=== PATIENT | male | born 1975 | race African-American/Black ===

== ENCOUNTER 2016-10-06 10:37 | Emergency (ER) | payer OTHER ==
--- NOTE | ~2016-10-06 | CT4 ---
[facility] A Service of [facility] RADIOLOGY TEXT RESULTS PATIENT: TERRI ERVIN LOCATION: [facility] : 79 UNIT #: [id number] AGE: [address]: Freda Qiu APRN SEX: M ORDER DR: [id number] [facility] [address] [place], [place] [address] [id number] E MR#: [id number] Acc #: [id number] NAME: TERRI ERVIN : 1975 SEX: M STUDY DATE/TIME: 10/06/2016 11:37 UNIT: [facility] ROOM: STUDY DESCRIPTION: CT Abd and Pelv Wo Cont Attending Physician: Freda Qiu A.P.R.N. Ordering Physician: Ed Jh Kim M.D. Primary Care Physician: Primary Care Physician No MEDICAL IMAGING REPORT This report is preliminary unless electronic signature is present EXAM CT abdomen and pelvis 10/06 INDICATIONS Left flank pain that started at 07:30 this morning. History of kidney stones. TECHNIQUE Axial images were obtained through the abdomen and pelvis without contrast. Multiplanar reformats were obtained. This CT exam was performed with one or more of the following radiation dose reduction techniques: automatic exposure control, adjustment of mA and/or kV according to patient size, and iterative reconstruction. COMPARISON 07/31/2009 FINDINGS Abdomen: Lung bases are clear. Gallbladder unremarkable. There is mild left hydronephrosis secondary to a 3 mm stone at the left ureterovesical junction. Tiny nonobstructing stones present in both kidneys. Unenhanced solid organs are otherwise normal. No adenopathy or free fluid is seen. The unopacified GI tract is normal. There are multiple ventral wall hernias containing abdominal fat. Pelvis: The appendix is normal. The remainder of the unopacified GI tract is normal as well. The urinary bladder is normal. No free fluid. Postoperative changes noted in the proximal femur on the right. Patient has a right L5 pars defect. IMPRESSION 1. Mild left hydronephrosis secondary to a 3 mL stone at the left ureterovesical junction. [facility] A Service of [facility] RADIOLOGY TEXT RESULTS PATIENT: TERRI ERVIN LOCATION: [facility] #: [id number] : [birth year] UNIT #: [id number] AGE: [address]: Freda Qiu APRN SEX: M ORDER DR: 2. Bilateral small nonobstructing renal stones. 3. Normal unopacified GI tract, including the appendix. 4. Multiple ventral wall hernias containing abdominal fat are again seen. Dictated by... Quan Segovia Jr., M.D. THIS IS AN ELECTRONICALLY VERIFIED REPORT Quan Segovia Jr., M.D. at 10/08/2016 7:20 AM RLK/jennifer TD: 10/06/2016 21:29 JOB #: [id number] MEDICAL IMAGING REPORT Page 1 of 1 COPY
[~2016-10-06 10:37] MED LIST: CIPRO PO; FLOMAX0.4 M1 PO; LORCET 10/650 T1 TAB PO; NORCO 7.5-3251 EACH PO; PHENERGAN PO; PYRIDIUM PO; TYLOX1 CAP 5/50 PO; ZITHROMAX1 G/PKT PO
[2016-10-06 11:24] LABS: BASOPHIL# 0.1 X10e3 (0-0.3); BASOPHIL% 0.6 % (0-2.5); EOSINOPHIL# 0.6 X10e3 (0-0.7); HEMATOCRIT 46.8 % (38.0-50.0); HEMOGLOBIN 15.4 gm/dL (13.0-16.0); LYMPHOCYTE# 2.5 X10e3 (1.0-3.5); LYMPHOCYTE% 25.1 % (17.0-45.0); MEAN CELL VOLUME 87.1 FL (83-96); MEAN CORPUSCULAR HEMOGLOBIN 28.7 PG (28-34); MEAN PLATELET VOLUME 9.1 FL (6.5-11.5); MONOCYTE# 0.8 X10e3 (0-1.0); MONOCYTE% 8.2 % (3.0-12.0); NEUTROPHIL# 5.9 X10e3 (1.5-7.1); NEUTROPHIL% 60.1 % (40-75); PLATELET COUNT 226 X10e3 (140-420); RED BLOOD COUNT 5.37 X10e (3.90-5.60); RED CELL DISTRIBUTION WIDTH 13.3 % (11.0-15.5); WHITE BLOOD COUNT 9.8 X10e3 (4.0-10.5)
[2016-10-06 11:24] LABS: URINE SOURCE CLEAN CATCH
[2016-10-06 11:27] LABS: DIFF IND NO
[2016-10-06 11:28] LABS: URINE APPEARANCE CLEAR; URINE BILIRUBIN NEG (NEG); URINE BLOOD NEG (NEG); URINE COLOR YELLOW; URINE GLUCOSE NEG (NEG); URINE KETONE NEG (NEG); URINE LEUKOCYTE ESTERASE NEG (NEG); URINE NITRATE NEG (NEG); URINE PROTEIN NEG (NEG); URINE SPECIFIC GRAVITY 1.029 (1.003-1.035); URINE UROBILINOGEN 0.2 MG/DL (NEG)
[2016-10-06 11:33] LABS: CULTURE INDICATED? NO
[2016-10-06 11:49] LABS: ALBUMIN SERUM 4.2 g/dL (3.5-5.0); BILIRUBIN,TOTAL 0.9 mg/dL (0.2-2.0); BUN/CREATININE RATIO 11.53; CALCIUM SERUM 9.3 mg/dL (8.4-10.2); CREATININE SERUM 1.3 mg/dL (0.6-1.4); GLOM FILT RATE Estimated 79.7 mL/min (>60); POTASSIUM 3.8 mmol/L (3.5-5.1); PROTEIN TOTAL SERUM 7.5 g/dL (6.0-8.3)
== END 2016-10-06 13:20 | disposition home or self-care (01) ==
LOC: CED 10:37
PROVIDERS: Nurse Practitioner
DX: N13.2 Hydronephrosis with renal and ureteral calculous obstruction (principal); R06.02 Shortness of breath; F17.210 Nicotine dependence, cigarettes, uncomplicated
CPT/HCPCS: 36415; 74176; 80053; 81003; 83690; 85025; 96361; 96374; 96375; 99284; J1170; J1885; J2270; J2405